=== PATIENT | female | born 1950 | race Caucasian/White ===

== ENCOUNTER 2018-01-21 09:29 | Day surgery (SDC) | payer MEDICARE, OTHER ==
[~2018-01-21 09:29] MED LIST: ACETAMINOPHEN 325 MG TAB PO; PHENYLEPHRINE HCL 10 % OPHTH. SOL 5ML OS; PROPARACAINE 0.5% OPHTH SOL 15ML OS
[2018-01-21] MEDS: LIDOCAINE 3.5 % 1ML OPHTH TOPICAL GEL OU (10:29)
[2018-01-21] MEDS ORDERED: PHENYLEPHRINE 2.5% OPHTH SOL 2ML OD (10:30)
[2018-01-21] MEDS: TROPICAMIDE 1% OPHTH SOLN 2ML OS (10:30)
[2018-01-21] MEDS: OFLOXACIN 0.3 % (OCUFLOX) OPTH SOL 5ML OS (10:30)
[2018-01-21] MEDS: CYCLOPENTOLATE 2% OPHTH SOLN 2ML BTL OS (10:30)
[2018-01-21 10:59] LABS: BEDSIDE GLUCOSE 131 MG/DL (80-115)
[2018-01-21] MEDS ORDERED: MIDAZOLAM INJ 2 MG/2 ML VIAL (J2250) As Ordered (11:36)
[2018-01-21] MEDS ORDERED: fentaNYL 100 MCG/2 ML INJECTION (J3010) As Ordered (11:36)
[2018-01-21] MEDS: POVIDONE-IODINE 5% OPHTH PREP SOL 30ML As Ordered (11:42)
[2018-01-21] MEDS: HEALON DUET (HEALON 10MG/ML 0.55ML & HEALON ENDOCOAT 30MG/ML 0.85ML) As Ordered ×2 (11:47→11:48)
[2018-01-21] MEDS: LIDOCAINE 1% SDV 5 ML VIAL As Ordered (11:47)
[2018-01-21] MEDS: BALANCED SALT IRRIGATION SOLUTION 500ML BAG (FOR OR EYE MACHINE) As Ordered (11:48)
[2018-01-21] MEDS ORDERED: TRIMETHOBENZAMIDE 300 MG CAP PO (12:30)
[2018-01-21] MEDS: AcetaZOLAMIDE 500 MG ER CAP PO (12:30)
[2018-01-21] MEDS: KETOROLAC 0.5% OPHTH SOLN OS (12:30)
== END 2018-01-21 12:32 | disposition home or self-care (01) ==
LOC: M SDC 09:29
DX: T85.29XA Other mechanical complication of intraocular lens, initial encounter (principal); Z96.1 Presence of intraocular lens; I10 Essential (primary) hypertension; E78.5 Hyperlipidemia, unspecified; E11.9 Type 2 diabetes mellitus without complications; K44.9 Diaphragmatic hernia without obstruction or gangrene; Z88.0 Allergy status to penicillin; Z79.82 Long term (current) use of aspirin; Y77.2 Prosthetic and other implants, materials and accessory ophthalmic devices associated with adverse incidents; T86.848 Other complications of corneal transplant
CPT/HCPCS: 66986